=== PATIENT | female | born 1985 | race Caucasian/White ===

== ENCOUNTER → 2021-03-21 | Outpatient (CLI) | payer SELFPAY | LOC: COL.LAB 12:18 | DX: M79.604 Pain in right leg (principal) ==

== ENCOUNTER → 2023-11-17 | Outpatient (CLI) | payer OTHER | LOC: COL.RAD 15:56 | DX: Z12.31 Encounter for screening mammogram for malignant neoplasm of breast (principal); N85.2 Hypertrophy of uterus ==

== ENCOUNTER → 2023-12-17 | Outpatient (CLI) | payer OTHER | LOC: MC.RAD 14:59 | DX: Z12.31 Encounter for screening mammogram for malignant neoplasm of breast (principal) ==